=== PATIENT | female | born 1955 | race Caucasian/White ===

== ENCOUNTER → 2017-01-28 09:21 | Emergency (ER) | payer SELFPAY ==
--- NOTE | 2017-01-28 10:38 | ED ---
GI/ HPI - HPI Summary HPI Summary: 61 female presents to ED with complaints of urinary burning, frequency, urgency , hematuria and pain that has been ongoing intermittently since August, however got much worse over the past 2-3 days. Patient states she has been drinking plenty of fluids however has not had any relief. Has had UTI in the past that was treated with antitbiotic and bladder anesthetic that made her better. States she is passing blood with urine, urine turned a dark red in color. States her is being treated with radiation for cancer and she is not supposed to be around him, however back in august she was close to him. Denies any back pain, abdominal pain, fever/chills, nausea and vomiting. No other complaints at this time. No PMHx other than uterine cancer in 30's that has been cured. Does not take any medications. No vaginal discharge or complaints at this time. Normal bowel movements. - History of Current Complaint Chief Complaint: EDUrogenitalProblems Time Seen by Provider: 01/28/17 09:41 Stated Complaint: UTI-LIKE SYMPTOMS Hx Obtained From: Patient Onset/Duration: Started Days Ago, Still Present, Worse Since Timing: Constant Severity: Mild Current Severity: Moderate Pain Intensity: 4 Pain Characteristics: Aching, Burning Associated Signs and Symptoms: Positive: Hematuria, Dysuria, UTI Symptoms Aggravating Factor(s): Urination Alleviating Factor(s): Nothing - Allergy/Home Medications Allergies/Adverse Reactions: Allergies Allergy/AdvReac Type Severity Reaction Status Date / Time No Known Allergies Allergy Verified 01/28/17 09:30 Home Medications: Home Medications Instaflex 1 tab PO DAILY 01/28/17 [History] Misc Natural Products [Joint Support] 1 cap PO 01/28/17 [History] Multivitamins/Minerals TAB* [Theragran/minerals TAB*] 1 tab PO DAILY 01/28/17 [ History Confirmed 01/28/17] PMH/Surg Hx/FS Hx/Imm Hx Endocrine/Hematology History: Denies: Hx Diabetes Cardiovascular History: Denies: Hx Hypertension Respiratory History: Denies: Hx Asthma - Surgical History Surgery Procedure, Year, and Place: hysterectomy - Immunization History Immunizations Up to Date: Yes Infectious Disease History: No Infectious Disease History: Denies: Traveled Outside the [place] in Last 30 Days - Family History Known Family History: Positive: None - Social History Alcohol Use: Rare Substance Use Type: Reports: None Smoking Status (MU): Never Smoked Tobacco Review of Systems Constitutional: Negative Cardiovascular: Negative Respiratory: Negative Gastrointestinal: Negative Positive: burning, dysuria, hematuria, urgency All Other Systems Reviewed And Are Negative: Yes Physical Exam Triage Information Reviewed: Yes Vital Signs On Initial Exam: Initial Vitals Temp Pulse Resp BP Pulse Ox 97.7 F 75 18 242/100 99 01/28/17 09:33 01/28/17 09:33 01/28/17 09:33 01/28/17 09:33 01/28/17 09:33 very elevated BP noted and patient refused treatment. states it is always around 190's and does not want it treated. asymptomatic Vital Signs Reviewed: Yes Appearance: Positive: Well-Appearing, No Pain Distress, Well-Nourished Skin: Positive: Warm, Skin Color Reflects Adequate Perfusion, Dry. Negative: Cold, Jaundiced Head/Face: Positive: Normal Head/Face Inspection Eyes: Positive: Normal, Conjunctiva Clear ENT: Positive: Hearing grossly normal Neck: Positive: Supple, Nontender Respiratory/Lung Sounds: Positive: Clear to Auscultation, Breath Sounds Present. Negative: Rales, Rhonchi, Wheezes Cardiovascular: Positive: Normal, RRR, Pulses are Symmetrical in both Upper and Lower Extremities. Negative: Murmur, Rub Abdomen Description: Positive: Nontender, No Organomegaly, Soft. Negative: Bruit, CVA Tenderness (R), CVA Tenderness (L), Distended, Guarding, Peritoneal Signs Bowel Sounds: Positive: Present Pelvic Exam: Positive: external exam normal - per patient, deferred exam, asymptomatic Musculoskeletal: Positive: Normal, Strength/ROM Intact Neurological: Positive: Normal, Sensory/Motor Intact, Alert, Oriented to Person Place, Time, Normal Gait - Amparo Coma Scale Coma Scale Total: 15 Diagnostics - Vital Signs Vital Signs Temp Pulse Resp BP Pulse Ox 01/28/17 09:33 97.7 F 75 18 242/100 99 - Laboratory Lab Statement: Any lab studies that have been ordered have been reviewed, and results considered in the medical decision making process. GIGU Course/Dx - Course Course Of Treatment: urinalysis obtained. urine dark red in color on collection. will treat for UTI with antibiotic and pyridium. no fevers, normal vitals. no additional back pain and abdominal pain. no concern for other etiology at this time however concerning due to history of cancer and color of urine. recommended follow up with urologist. suggested obtaining a CT while in ED however patient refused. Hypertentive emergency while in ED, asymptomatic, checked multiplt time both arms, patient denied admission and treatment. Left AMA. Highly recommended follow up and educated on danger of HTN as well as not obtaining CT bladder. Scripts sent to pharmacy for UTI. - Diagnoses Differential Diagnoses - Female: Bladder Dysfunction, Renal Calculi, Urinary Tract Infection, Ureteral Calculi, Other - bladder cancer, hypertension, hypertensive emergency Provider Diagnoses: Urinary tract infection, Hypertension - Physician Notifications Discussed Care Of Patient With: Dr Benton Discharge - Discharge Plan Condition: Stable Disposition: AGAINST MEDICAL ADVICE Prescriptions: Ciprofloxacin TAB* [Cipro 250 MG Tab*] 250 mg PO BID #10 tab Phenazopyridine 200 mg (NF) [Pyridium 200 MG tab *] 200 mg PO TID #6 tab Patient Education Materials: Urinary Tract Infection in Women (ED) Referrals: [facility] [Outside] Bartolo Freeman MD [Medical Doctor] -
[2017-01-28 10:55] LABS: Urine Bacteria Absent (Absent); Urine Bilirubin Negative (Negative); Urine Glucose Negative (Negative); Urine Nitrite Negative (Negative)
[2017-01-28 11:35] VITALS: BP 238/113
--- NOTE | 2017-01-30 09:15 | ED ---
Progress - Progress Note Progress Note: Pt's prelim urine cx reveals 50-75,000 e. coli - was started on cipro. No changes at this time. Course/Dx - Course Course Of Treatment: urinalysis obtained. urine dark red in color on collection. will treat for UTI with antibiotic and pyridium. no fevers, normal vitals. no additional back pain and abdominal pain. no concern for other etiology at this time however concerning due to history of cancer and color of urine. recommended follow up with urologist. suggested obtaining a CT while in ED however patient refused. Hypertentive emergency while in ED, asymptomatic, checked multiplt time both arms, patient denied admission and treatment. Left AMA. Highly recommended follow up and educated on danger of HTN as well as not obtaining CT bladder. Scripts sent to pharmacy for UTI. - Diagnoses Provider Diagnoses: Urinary tract infection, Hypertension
== END | disposition left against medical advice (07) ==
LOC: ED 09:21
DX: N39.0 Urinary tract infection, site not specified (principal); I10 Essential (primary) hypertension
CPT/HCPCS: 81003; 81015; 87077; 87086; 87186; 99281